=== PATIENT | male | born 1955 | race Caucasian/White ===

== ENCOUNTER → 2017-04-13 | Outpatient (CLI) | payer BC, MEDICARE ==
[2017-04-13 09:58] LABS: HCT 46.7 % (39.0-53.0); HGB 15.3 gm/dL (13.0-17.5); MCH 30.8 pg (25.0-35.0); MCHC 32.8 g/dL (31.0-37.0); Mean Platelet Volume 6.7; Platelet Count 255 k/uL (150-450); RBC 4.97 m/uL (4.30-5.90); WBC 13.9 k/uL (3.8-10.6)
[2017-04-13 10:05] LABS: Glucose 91 mg/dL (74-99)
--- NOTE | 2017-04-13 11:49 | MR ---
EXAMINATION TYPE: MR iac wo/w con DATE OF EXAM: 04/13/2017 COMPARISON: NONE HISTORY: Tinnitus , hearing loss left TECHNIQUE: Multiplanar, multisequence images of the brain and brainstem is performed without and with IV contras t, utilizing 11 mL intravenous Gadavist . FINDINGS: Diffusion weighted images demonstrate no evidence of a recent infarct or other diffusion ab normality. There is no worrisome extra-axial fluid collection. There is ventricular and sulcal promi nence consistent with diffuse age-related cerebral atrophy. 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 There are few scattered foci of T2 hyperintensity seen throughout the white matter bilate rally. Approximately 5-8 small scattered lesions are identified. Midline structures demonstrate normal morphology. The craniocervical junction appears within normal limits. The dural venous sinuses appear patent. The visualized sinuses are clear and the globes are intact. No suspicious fluid signal seen in mastoid air cells bilaterally. Vestibulocochlear complexes are sym metric and felt within normal limits. There is no suspicious enhancing cerebellopontine angle mass id entified bilaterally. IMPRESSION: 1. No suspicious left-sided cerebellopontine angle mass identified to account for patient's symptoms. 2. There is background mild diffuse cerebral atrophy and chronic small vessel ischemic change noted.
[2017-04-13 12:02] LABS: Erythrocyte Sedimentation Rate 9 mm/hr (0-15)
== END | disposition home or self-care (01) ==
LOC: RADMRIMAIN 09:22
PROVIDERS: ATTEND Otolaryngology
DX: G31.9 Degenerative disease of nervous system, unspecified (principal); I67.82 Cerebral ischemia; H93.19 Tinnitus, unspecified ear; R42 Dizziness and giddiness
CPT/HCPCS: 85652; 82565; 82947; 84443; 85027; 86592; 86618; 86038; 70553; A9581

== ENCOUNTER → 2020-07-21 | Outpatient (CLI) | payer MEDICARE ==
--- NOTE | 2020-07-21 10:19 | XR ---
EXAMINATION TYPE: XR chest 2V DATE OF EXAM: 07/21/2020 COMPARISON: NONE HISTORY: Shortness of breath TECHNIQUE: Frontal and lateral views of the chest are obtained. FINDINGS: Scattered senescent parenchymal changes noted. Hyperinflation compatible with COPD. No epicardial eugene ds identified. The patient is cleared for MRI. No evidence for infiltrate. No evidence for atelectasis. Heart size is stable. Mediastinal structures are stable and grossly unremarkable. No evidence for hilar prominence. Degenerative changes dorsal spine. IMPRESSION: 1. No evidence for acute pulmonary disease.
== END | disposition home or self-care (01) ==
LOC: RADXRMAIN 09:34
PROVIDERS: ATTEND Orthopaedic Surgery Orthopaedic Surgery of the Spine
DX: R06.02 Shortness of breath (principal)
CPT/HCPCS: 71046

== ENCOUNTER 2021-02-25 08:46 | Day surgery (SDC) | payer MEDICARE ==
[2021-02-23 11:40] VITALS: BMI 36.9
[~2021-02-25 08:46] MED LIST: ALPRAZolam 0.25 MG TAB PO PRN; ALPRAZolam 0.5 MG TAB PO PRN; ASPIRIN 325 MG TAB PO ONE; ATORVASTATIN 80 MG TAB PO ONE; NITROGLYCERIN SL TABS 0.4 MG TAB SUBLINGUAL PRN
[2021-02-25] MEDS ORDERED: SODIUM CHLORIDE 0.9% 1,000 ML IV ONE (09:30)
[2021-02-25] MEDS ORDERED: LIDOCAINE 1% INJ 10MG/ML (20 ML MDV) ONE (10:17)
[2021-02-25] MEDS ORDERED: fentaNYL (PF) 50 MCG/ML 2 ML AMP ONE (10:17)
[2021-02-25] MEDS ORDERED: fentaNYL (PF) 50 MCG/ML 2 ML AMP IVP ONE (10:37)
[2021-02-25] MEDS ORDERED: LIDOCAINE 1% INJ 10MG/ML (20 ML MDV) SQ ONE (10:38)
[2021-02-25] MEDS ORDERED: IOPAMIDOL-370 125ML BTL INJ ONE ×2 (10:58→11:08)
[2021-02-25] MEDS ORDERED: IOPAMIDOL-300 50ML BTL INJ ONE (11:04)
[2021-02-25] MEDS ORDERED: RX INFO: IV CONTRAST WAS GIVEN 1 EACH MISC MISCELLANE PRN (11:18)
[2021-02-25] MEDS ORDERED: SODIUM CHLORIDE 0.9% 1,000 ML IV SCH (11:30)
--- NOTE | 2021-02-25 12:25 | LTR ---
DATE OF SERVICE: 02/25/[address] Hall: I had the pleasure of performing cardiac catheterization on Mr. David at [facility] on February 25 and a full copy of procedure note will be forwarded to you. In brief, he was found to have patent HAN to LAD and patent radial bypass to the RCA with occluded saphenous vein graft to the obtuse marginal branch. The results of the stress test correlate with his obtuse marginal branch circulation. At this time, in view of the findings, I would recommend medical therapy. Depending on his progress, further recommendations will be made. Thank you again for allowing me to participate in his care. Please feel free to call for any questions. Sincerely yours, MMODL / IJN: [id number] /
--- NOTE | 2021-02-25 12:25 | CC ---
CARDIAC CATHETERIZATION REPORT Mr. David is a 65-year-old male with known history of coronary artery disease status post coronary artery bypass grafting over 20 years ago, history of severe peripheral vascular disease, hypertension, hyperlipidemia, who was scheduled to undergo noncardiac surgery. He underwent myocardial perfusion imaging that revealed a mildly sized reversible lateral wall defect. In view of that, recommendation was made regarding cardiac catheterization. The procedure as well as the risks and the complications were discussed with the patient who is in full understanding and agreement. PROCEDURE DETAILS: Patient was brought to skilled laborer in a fasting semi-sedated state after receiving fentanyl and Benadryl and achieving moderate conscious sedated state. Using Xylocaine anesthesia and Seldinger technique, a 6-Polish sheath was introduced in the left femoral artery. Selective right and left coronary angiography was performed using 6- Polish 4 bend right and left Fartun catheter. Multiple views of the coronary arteries including hemiaxial views were obtained. The right Fartun was used to cannulate the radial bypass to the RCA and HAN to the LAD. Images of the grafts were obtained. Following that, a 6-Polish tight pigtail catheter was introduced into the left ventricle and pressures were calculated. Following that, an ascending aortogram in the CHINESE view was performed. At the end procedure, catheter and sheath were removed. Hemostasis was obtained with compression of the left groin. There was no immediate complication. Patient is returned to his room in stable condition. FINDINGS: LEFT MAIN: This vessel is bifurcating in the LAD and the left circumflex. It is short in caliber. The left main does not appear to have any significant obstructive disease, although it is very short and was not well visualized. LAD: This vessel appears to be totally occluded proximally with no antegrade flow. LEFT CIRCUMFLEX: This is a nondominant vessel giving rise to 2 obtuse marginal branches. The left circumflex proximally has a 50% plaque. The first obtuse marginal branch is subtotally occluded with very slow antegrade flow and appears to be diffusely diseased. The second obtuse marginal branch is patent and has no evidence of high- grade stenosis. RIGHT CORONARY ARTERY: This vessel is calcified, gives rise to an acute marginal branch in the mid segment. The proximal segment of the vessel is diffusely diseased with area of stenosis up to 70%. The RCA following the takeoff of the acute marginal branch is totally occluded with no antegrade flow. RADIAL BYPASS TO THE RCA: The proximal and distal anastomotic sites are patent. The flow into the PDA is brisk. There is retrograde flow into the mid RCA. HAN TO THE LAD: The distal anastomotic site is patent. There is brisk flow into the LAD. There is no evidence of obstructive disease and there is retrograde flow in the proximal segment of the LAD. AORTOGRAM: Aortogram was performed in the CHINESE view and revealed a tricuspid valve with no evidence of aortic regurgitation. No visualization of the saphenous vein grafts was seen. LEFT VENTRICULOGRAM: Not performed. HEMODYNAMICS: There was no gradient across the aortic valve. The left ventricular end-diastolic pressure was 30-36 mmHg. LEFT FEMORAL ARTERIOGRAM: Revealed severe obstructive disease. CONCLUSION: 1. Severe triple-vessel coronary artery disease. 2. Patent HAN to LAD. 3. Patent radial bypass to the RCA. 4. Occluded saphenous vein graft to the obtuse marginal branch. 5. Normal appearance of the ascending aorta. 6. Severe peripheral vascular disease. RECOMMENDATIONS: In view of findings and anatomy, I recommend continue medical therapy. The abnormal stress test corresponds to the left circumflex territory. I will maximize his medical therapy and depending on his progress, further recommendations will be made. Those findings and recommendations were discussed with the patient and his family, and they are in full understanding and agreement. The duration of sedation is 35 minutes. MMODL / IJN: [id number] /
[2021-02-25] MEDS: SODIUM CHLORIDE 0.9% 1,000 ML in EMPTY BAG 1 BAG IV SCH ×2 (15:26→15:27)
[2021-02-25 19:39] VITALS: BP 118/70; PULSE 74; RESP 20; TEMP 98.1
[2021-02-25] MEDS ORDERED: hydrALAZINE HCL 50 MG TAB PO SCH (21:00)
[2021-02-25] MEDS ORDERED: ASPIRIN 81 MG PO SCH (21:00)
[2021-02-25] MEDS ORDERED: ISOSORBIDE MONONITRATE ER 30 MG TAB.ER.24H PO SCH (21:00)
[2021-02-25] MEDS ORDERED: METOPROLOL SUCCINATE (ER) 50 MG TAB.ER.24H PO SCH (21:00)
[2021-02-25] MEDS ORDERED: lisinopriL 20 MG TAB PO SCH (21:00)
[2021-02-25] MEDS ORDERED: FENOFIBRATE 160 MG TAB PO SCH (21:00)
== END 2021-02-25 19:41 | disposition home or self-care (01) ==
LOC: CATHCVL 08:46 → 6NMEDSUR 11:10 → CATHCVL 19:41
PROVIDERS: ATTEND Internal Medicine Interventional Cardiology
DX: I25.10 Atherosclerotic heart disease of native coronary artery without angina pectoris (principal); I10 Essential (primary) hypertension; I25.810 Atherosclerosis of coronary artery bypass graft(s) without angina pectoris; I25.5 Ischemic cardiomyopathy; I73.9 Peripheral vascular disease, unspecified; E78.00 Pure hypercholesterolemia, unspecified; E78.2 Mixed hyperlipidemia; G47.33 Obstructive sleep apnea (adult) (pediatric); R94.39 Abnormal result of other cardiovascular function study; Z20.822 Contact with and (suspected) exposure to COVID-19; F17.210 Nicotine dependence, cigarettes, uncomplicated; Z98.890 Other specified postprocedural states; Z79.82 Long term (current) use of aspirin; Z79.899 Other long term (current) drug therapy
CPT/HCPCS: 93459; 93567; 87635; C1769 ×2; C1894; J2001; J3010; Q9967 ×2

== ENCOUNTER → 2023-03-23 | Outpatient (CLI) | payer MEDICARE ==
[2023-03-23 11:48] LABS: African American GFR (CKD) 86 (>60 ml/min/1.73 sqM); Blood Urea Nitrogen 12 mg/dL (9-20); Non-African American GFR(CKD) 75 (>60 ml/min/1.73 sqM)
--- NOTE | 2023-03-23 13:08 | CT ---
EXAMINATION TYPE: CT abdomen pelvis w con DATE OF EXAM: 03/23/2023 COMPARISON: None. HISTORY: epigastric pain, diarrhea. Right lower quadrant pain. CT DLP: 1823.5 mGycm, Automated Exposure Control for Dose Reduction was Utilized. CONTRAST: CT scan of the abdomen and pelvis is performed with oral and with IV Contrast, patient injected with 100 mL of Isovue 300. FINDINGS: LUNG BASES: Overlying sternal wires are partially imaged. LIVER/GB: Liver is diffusely low dense consistent with fatty infiltrative hepatocellular disease. PANCREAS: No significant abnormality is seen. SPLEEN: No significant abnormality is seen. ADRENALS: No significant abnormality is seen. KIDNEYS: No significant abnormality is seen. BOWEL: Oral contrast extends to the proximal transverse colon. No abnormal small or large bowel dilat ation. PROSTATE/SEMINAL VESICLES: Mildly enlarged prostate gland consistent with BPH. Penile prosthesis with pump anterior to the superior aspect of the bladder is noted LYMPH NODES: No greater than 1cm abdominal or pelvic lymph nodes are appreciated. OSSEOUS STRUCTURES: Rzijuzgv-of-guyryy disc space narrowing and vacuum disc phenomenon at L4-L5 and L 5-S1 levels. OTHER: Small fat-containing left inguinal hernia. Some redundant sigmoid colon is present. Surgical c lips and scar tissue right region is seen. Moderate to severe peripheral plaque in the aorta extends into branch vessels. There is more prominen t noncalcified plaque in left distal left common iliac artery. Slight aneurysmal change to the distal common iliac arteries is present bilaterally. Significant narrowing due to calcified plaque origin o f the celiac trunk. Significant narrowing with near complete occlusion at the SMA origin. There is po ssible occlusion at the NEETU origin with retrograde filling. No free or mesenteric air. IMPRESSION: No Bowel obstruction. Severe atherosclerotic change of aorta extending into branch vessel s including significant stenosis in the celiac artery, SMA, and NEETU. Advise vascular and/or surgical referral to further assess as patient is at increased risk for ischemic bowel disease.
== END | disposition home or self-care (01) ==
LOC: RADCTMAIN 10:52
PROVIDERS: ATTEND Family Medicine
DX: I70.0 Atherosclerosis of aorta (principal); R10.31 Right lower quadrant pain; R10.32 Left lower quadrant pain; R19.4 Change in bowel habit
CPT/HCPCS: 82565; 84520; 74177; 36415; Q9967

== ENCOUNTER 2024-04-01 13:30 | Day surgery (SDC) | payer MEDICARE ==
[2024-03-29 11:36] VITALS: BMI 32.8
[~2024-04-01 13:30] MED LIST changes: -ALPRAZolam 0.25 MG TAB PO PRN; -ALPRAZolam 0.5 MG TAB PO PRN; -ASPIRIN 325 MG TAB PO ONE; -ATORVASTATIN 80 MG TAB PO ONE; +HYDROmorphone 0.5 MG/0.5 ML SYRINGE IVP PRN; +MIDAZOLAM 2 MG/2 ML VIAL IV PRN; -NITROGLYCERIN SL TABS 0.4 MG TAB SUBLINGUAL PRN; +ceFAZolin 1 GM in SODIUM CHLORIDE 0.9% IRRIG BTL 250 ML IRRIGATION PRN
[2024-04-01] MEDS: IV FLUID CONTINUATION 1,000 ML IV ONE (17:10)
[2024-04-01] MEDS: SODIUM CHLORIDE 0.9% 1,000 ML IV SCH (17:10)
[2024-04-01 17:35] LABS: ALT 20 U/L (4-49); AST 35 U/L (17-59); African American GFR (CKD) >90 (>60 ml/min/1.73 sqM); Albumin 4.9 g/dL (3.5-5.0); Alkaline Phosphatase 36 U/L (38-126); Anion Gap 8 mmol/L; Blood Urea Nitrogen 14 mg/dL (9-20); Carbon Dioxide 26 mmol/L (22-30); Chloride 107 mmol/L (98-107); Glucose 83 mg/dL (74-99); Non-African American GFR(CKD) 85 (>60 ml/min/1.73 sqM); Potassium 4.2 mmol/L (3.5-5.1); Sodium 141 mmol/L (137-145); Total Bilirubin 1.3 mg/dL (0.2-1.3); Total Protein 8.1 g/dL (6.3-8.2)
[2024-04-01] MEDS ORDERED: diphenhydrAMINE 50 MG/ML 1 ML VIAL ONE (19:01)
[2024-04-01] MEDS ORDERED: PROPOFOL 10 MG/ML 20 ML VIAL IV ONE (19:01)
[2024-04-01] MEDS ORDERED: MIDAZOLAM 2 MG/2 ML VIAL ONE (19:01)
[2024-04-01] MEDS ORDERED: fentaNYL (PF) 50 MCG/ML 2 ML AMP ONE (19:01)
[2024-04-01] MEDS: IOPAMIDOL-370 100ML BTL INJ ONE (19:15)
[2024-04-01] MEDS: LIDOCAINE 1% INJ 10MG/ML (20 ML MDV) SQ ONE (19:35)
[2024-04-01] MEDS: ROPIVACAINE 5 MG/ML 30 ML VIAL MISCELLANE ONE (19:37)
[2024-04-01] MEDS ORDERED: ACETAMINOPHEN TAB 325 MG TAB PO PRN (20:23)
--- NOTE | 2024-04-01 20:29 | P.EPPROC ---
- EP Procedure Note Electrophysiology Procedure Note: Diagnosis Ischemic cardiomyopathy, chronic, Congestive heart failure, systolic class II On guideline directed medical treatment guideline directed Narrow QRS, heart rates in the 70s and 80s at rest Procedure: Single ICD implantation for management of risk of sudden cardiac Left upper extremity venogram Defibrillation level testing Organisational Psychologist: Dr. Bradford Result: Single chamber ICD implantation, RV ICD lead: Donald, up to sure model number LDA 210 Q R waves greater than 12 mV, pacing threshold 0.8 V at 0.5 ms and pacing impedance of 990 ohms High-voltage impedance 70 ohms ICD generator: Donald [place], VR Procedure details: Patient was brought to the EP lab in a fasting state. Written informed consent was obtained prior to the procedure. Options, pros and cons, benefits and risks and complications discussed with patient in detail prior to the procedure (shared decision making document, from [facility]). Importance of continuing medical treatment emphasized. Alternatives discussed. Patient would like to proceed with ICD implant. Left upper extremity venogram performed. 15 mL IV dye injected in the left arm. Patent axillary/subclavian vein The left pectoral area was prepped and draped as a protocol. IV antibiotics administered 1% lidocaine was used for local anesthesia. A 4 cm incision was made parallel to the deltopectoral groove, about 1.5 cm medial to it. The incision was carried down to the level of the pectoralis muscle and the subfascial pocket was made. Hemostasis was assured. The axillary vein access was obtained. Appropriately sized venous sheath was placed. ICD lead implanted in the right ventricle and screwed in. ICD lead tested for threshold, sensing, impedances and tested with high output pacing for diaphragmatic stimulation Lead secured to the underlying transverse muscle after removing sheaths . Pocket irrigated with antibiotic solution Leads connected to the ICD generator. Wound closed in 3 layers and dressed per protocol ICD was interrogated and programmed. Appropriate pacing parameters, antitachycardia therapies with antitachycardia pacing cardioversion defibrillations programmed. Patient tolerated the procedure well without any acute complications. See scanned device report in EMR for lead details Defibrillation level testing VF induced and adequately and appropriately detected at least sensitivity and successfully internally defibrillated with a 20 J shock A 10 J shock failed to defibrillate the patient High-voltage impedance 70 ohms Last charge time 3.5 seconds Anode polarity Single-chamber ICD programmed to MADIT RIT programming and backup pacing VVI 40 beats a minute First cardioversion 20 J First defibrillation maximum output Appropriate antitachycardia pacing programmed
--- NOTE | 2024-04-01 20:30 | P.PRLE ---
RE: JoannMiguel Dear Miguel Mr. David underwent single-chamber ICD implantation for primary prevention of sudden cardiac for ischemic cardiomyopathy with severe LV dysfunction on guideline directed medical treatment. He will continue to follow-up with you and Dr. Reyes as before Thank you for entrusting me with the care of the patient Warm regards Sincerely Juan Manuel Bradford
[2024-04-01] MEDS: LACTATED RINGERS 1,000 ML IV SCH (21:30)
[2024-04-01] MEDS: ASPIRIN 81 MG PO SCH (22:16)
[2024-04-01] MEDS: ACETAMINOPHEN IV (For NPO) 1,000 MG in EMPTY BAG 1 BAG IVPB ONE (22:17)
[2024-04-01] MEDS: ISOSORBIDE MONONITRATE ER 30 MG TAB.ER.24H PO SCH (22:17)
[2024-04-01] MEDS: FENOFIBRATE 160 MG TAB PO SCH (22:17)
[2024-04-01] MEDS: METOPROLOL SUCCINATE (ER) 50 MG TAB.ER.24H PO SCH (22:17)
[2024-04-01] MEDS: ATORVASTATIN 80 MG TAB PO SCH (22:17)
[2024-04-01] MEDS: hydrALAZINE HCL 50 MG TAB PO SCH (22:17)
[2024-04-01] MEDS: lisinopriL 20 MG TAB PO SCH (22:17)
--- NOTE | 2024-04-02 08:23 | XR ---
EXAMINATION TYPE: XR chest 2V DATE OF EXAM: 04/02/2024 7:14 AM COMPARISON: None CLINICAL INDICATION: Male, 68 years old with history of Lead placement check; [facility] TECHNIQUE: XR chest 2V Frontal and lateral views of the chest. FINDINGS: Lungs/Pleura: There is no evidence of pleural effusion, focal consolidation, or pneumothorax. Pulmonary vascularity: Pulmonary vascular congestion. Heart/mediastinum: Cardiomediastinal silhouette is prominent in size. Single-lead cardiac conduction device overlying the left hemithorax with lead projecting over the right ventricle. Musculoskeletal: Multiple level degenerative disc disease changes seen throughout the spine. Midline sternotomy wires are noted. IMPRESSION: 1. Lead in appropriate position. 2. No acute cardiopulmonary disease/process. [facility], , 04/02/2024 8:21 AM
[2024-04-02 14:13] VITALS: BP 138/78; PULSE 72; RESP 17; TEMP 99.4
--- NOTE | 2024-04-02 17:24 | P.DS ---
Providers Attending physician: Juan Manuel Bradford Primary care physician: Miguel [facility] Course: Miguel is doing well. No chest discomfort dizziness lightheadedness His ICD site is healed well. Minimal soakage no hematoma On examination he is afebrile 97.6 pulse rate is in the 60s blood pressure 105/63 mmHg Heart sounds S1-S2 normal Breath sounds are clear Chest x-ray is within normal limits He underwent a single-chamber ICD yesterday for ischemic cardiomyopathy The ICD interrogation is within normal limits Impression Status post single-chamber ICD for primary prevention of sudden cardiac Severe ischemic cardiomyopathy Class II CHF On guideline directed medical treatment [place] status post revascularization many years back Plan discharge home today Follow-up in the office in a week's time Continue cardiomyopathy and heart failure medications and medications for CAD Patient Condition at Discharge: Stable Plan - Discharge Summary Discharge Rx Participant: Yes New Discharge Prescriptions: No Action RX: Metoprolol Succinate [Toprol XL] 50 mg PO HS RX: Fenofibrate Nanocrystallized [Tricor] 145 mg PO HS RX: Aspirin 81 mg PO HS RX: Isosorbide Mononitrate [Isosorbide Mononitrate ER] 30 mg PO HS Ibuprofen [Motrin Ib] 200 - 800 mg PO Q8H PRN PRN Reason: Pain hydrALAZINE HCL [Apresoline] 50 mg PO BID RX: Atorvastatin Calcium 80 mg PO HS lisinopriL [Prinivil] 20 mg PO BID Discharge Medication List RX: Aspirin 81 mg PO HS 05/05/15 [History] RX: Fenofibrate Nanocrystallized [Tricor] 145 mg PO HS 05/05/15 [History] RX: Isosorbide Mononitrate [Isosorbide Mononitrate ER] 30 mg PO HS 05/05/15 [History] RX: Metoprolol Succinate [Toprol XL] 50 mg PO HS 05/05/15 [History] Ibuprofen [Motrin Ib] 200 - 800 mg PO Q8H PRN 02/23/21 [History] hydrALAZINE HCL [Apresoline] 50 mg PO BID 02/23/21 [History] lisinopriL [Prinivil] 20 mg PO BID 02/23/21 [History] RX: Atorvastatin Calcium 80 mg PO HS 04/01/24 [History] Follow up Appointment(s)/Referral(s): Juan Manuel Bradford MD [STAFF PHYSICIAN] - 04/04/24 3:00 pm (DEVICE CLINIC APPOINTMENT IS Monday AT 3PM Follow-up with Dr. Reyes as previously scheduled) Activity/Diet/Wound Care/Special Instructions: PATIENT EDUCATION MATERIAL Instructions following a heart rhythm device implant. 1. Keep dressing DRY for 5 DAYS. You may cover the area with Saran or Cling Wrap, prior to a shower. 2. The dressing will be removed in the Device Clinic at [facility]. Absorbable sutures were used to close the wound. 3. Avoid raising the left arm above the shoulder level. 4 week restriction 4. Avoid arm movements, like backscratching, rubbing the head, or pulling on a cord. 4 weeks restriction 5. Gentle range of motion movements of the shoulder, closest to the incision should be performed to avoid a frozen shoulder. (Pendulum exercises of the shoulder) 6. The opposite arm may be used freely. 7. Avoid driving for 7 days. 8. Avoid activities such as golfing, swimming, weed whacking, lifting more than 10 pounds weight, bowling, gymnastics and weight training/lifting. (6 weeks restriction) 9. Activities such as wood chopping with an axe, pull-ups in the gymnasium, power lifting, arc-welding, being close to home induction cooktops will always be a problem. 10. Arm sling is only a reminder not to raise the arm above the head. You do not need to keep the arm completely immobilized. Your free to move the arm and use it and for normal activities. In case of any problems, please call [facility] [place], @ [phone], Attention: Device Clinic Device clinic follow-up in 5 days Follow-up with primary meat sales and storage manager in 2-3 months Discharge Disposition: HOME SELF-CARE
== END 2024-04-02 14:48 | disposition home or self-care (01) ==
LOC: CATHEP 13:30 → 6NMEDSUR 20:20 → CATHEP 04-02 14:48
PROVIDERS: ATTEND Internal Medicine Clinical Cardiac Electrophysiology
DX: I25.5 Ischemic cardiomyopathy (principal); I50.22 Chronic systolic (congestive) heart failure; I25.2 Old myocardial infarction; I44.30 Unspecified atrioventricular block; I25.10 Atherosclerotic heart disease of native coronary artery without angina pectoris; I73.9 Peripheral vascular disease, unspecified; Z79.82 Long term (current) use of aspirin; Z95.5 Presence of coronary angioplasty implant and graft; Z79.899 Other long term (current) drug therapy
CPT/HCPCS: 93641; 33249; 80053; 84443; 71046; C1722; C1892; C1769; C1777; J2250; J1200; J0690 ×2; J2003; J3010; J2795; J0131; J2704; Q9967

== ENCOUNTER 2024-08-16 09:29 | Day surgery (SDC) | payer MEDICARE ==
[~2024-08-16 09:29] MED LIST changes: -HYDROmorphone 0.5 MG/0.5 ML SYRINGE IVP PRN; +LIDOCAINE 1% (10MG/ML) FOR IV START INTRADERMA PRN; -MIDAZOLAM 2 MG/2 ML VIAL IV PRN; -ceFAZolin 1 GM in SODIUM CHLORIDE 0.9% IRRIG BTL 250 ML IRRIGATION PRN
[2024-08-16 10:02] VITALS: RESP 16; TEMP 97.4
[2024-08-16] MEDS: IV FLUID CONTINUATION 1,000 ML IV ONE (10:12)
[2024-08-16] MEDS: LACTATED RINGERS 1,000 ML IV SCH (10:13)
[2024-08-16] MEDS ORDERED: PROPOFOL 10 MG/ML 20 ML VIAL IV ONE (10:34)
--- NOTE | 2024-08-16 10:57 | P.PCN ---
Date of Procedure: 08/16/24 Procedure(s) Performed: BRIEF HISTORY: Patient is a 69-year-old pleasant white male scheduled for an elective colonoscopy as a part of screening for colon cancer. PROCEDURE PERFORMED: Colonoscopy. PREOPERATIVE DIAGNOSIS: Screening for colon cancer. IV sedation per Anesthesia. PROCEDURE: After informed consent was obtained, the patient, was brought into the endoscopy unit. IV sedation was administered by Anesthesia under continuous monitoring. Digital rectal examination was normal. Initially the Olympus CF-160 flexible video colonoscope was then inserted in the rectum, gradually advanced into the cecum without any difficulty. Careful examination was performed as the scope was gradually being withdrawn. Ileocecal valve and the appendiceal orifice were visualized and appeared normal. Prep was excellent. Mucosa of the cecum, ascending colon, transverse colon, descending colon, sigmoid colon, and rectum appeared normal. Retroflexion was performed in the rectum and no lesions were seen. The patient tolerated the procedure well. IMPRESSION: Normal-appearing colon from rectum to cecum with no evidence of colorectal neoplasia. RECOMMENDATIONS: Findings of this examination were discussed with the patient as well as his family. He was advised to have repeat screening colonoscopy in 10 years..
[2024-08-16 11:17] VITALS: BP 153/66; PULSE 63
== END 2024-08-16 11:32 | disposition home or self-care (01) ==
LOC: ORWHC2ENDO 09:29
PROVIDERS: ATTEND Internal Medicine Gastroenterology
DX: Z12.11 Encounter for screening for malignant neoplasm of colon (principal)
CPT/HCPCS: J2704; G0121